=== PATIENT | female | born 1945 | race Two or more races ===

== ENCOUNTER 2019-01-14 11:52 | Inpatient (IN) | payer OTHER ==
[~2019-01-14] VITALS: Ht 160 cm; Wt 63.5 kg
[2019-01-26] MEDS ORDERED: COZAAR100 MG PO (09:46)
[2019-01-26] MEDS ORDERED: [UNRECOGNIZED DRUG - OTHER] PO (09:46)
[2019-01-26] MEDS ORDERED: EZETIMIBE10 MG PO (09:47)
[2019-01-26] MEDS ORDERED: CLONAZEPAM0.5 MG PO (09:47)
[2019-01-26] MEDS ORDERED: ASPIR 8181 MG PO (09:48)
[2019-01-26] MEDS ORDERED: PROTONIX40 M1 PO (09:48)
[2019-01-26] MEDS ORDERED: DICLOFENAC SODIU5 ML PO (09:48)
[2019-02-03] MEDS ORDERED: NORVASC5 MG PO (10:02)
[2019-02-05] MEDS ORDERED: LOSARTAN POTAS100 MG PO (13:37)
[2019-02-05] MEDS ORDERED: AMLODIPINE BESYL5 MG PO (13:37)
[2019-02-05] MEDS ORDERED: NEURONTIN300 MG PO (13:38)
[2019-02-05] MEDS ORDERED: CLONAZEPAM0.5 MG PO (13:38)
[2019-02-05] MEDS ORDERED: ULTRACET PO (13:39)
[2019-02-05] MEDS ORDERED: BONIVA150 MG PO (13:40)
== END 2019-02-05 14:45 | disposition home or self-care (01) | DRG 331 ==
LOC: ADM 01-25 14:45 → AMB-ENDOS 02-01 07:15 → EDSTATUS 02-01 07:15 → O/R 02-02 04:57 → SURH 02-02 04:57
PROVIDERS: ADMIT Surgery
PROC: 07TB4ZZ Resection of Mesenteric Lymphatic, Percutaneous Endoscopic Approach (ICD-10-PCS; 2019-02-02)
PROC: 0DJD8ZZ Inspection of Lower Intestinal Tract, Via Natural or Artificial Opening Endoscopic (ICD-10-PCS; 2019-02-02)
PROC: 0DTN4ZZ Resection of Sigmoid Colon, Percutaneous Endoscopic Approach (ICD-10-PCS; principal; 2019-02-02 20:15)
DX: C18.7 Malignant neoplasm of sigmoid colon (principal); N73.6 Female pelvic peritoneal adhesions (postinfective); R59.0 Localized enlarged lymph nodes; K63.5 Polyp of colon

== ENCOUNTER 2019-02-01 11:30 | Day surgery (SDC) | payer OTHER ==
[~2019-02-01 11:30] MED LIST: ASPIR 8181 MG PO; CLONAZEPAM0.5 MG PO; COZAAR100 MG PO; DICLOFENAC SODIU5 ML PO; EZETIMIBE10 MG PO; PROTONIX40 M1 PO; [UNRECOGNIZED DRUG - OTHER] PO
== END 2019-02-01 14:25 | disposition home or self-care (01) ==
LOC: AMB-ENDOS 11:30
DX: D12.5 Benign neoplasm of sigmoid colon (principal)

== ENCOUNTER 2020-08-02 06:06 | Day surgery (SDC) | payer OTHER ==
[~2020-08-02 06:06] MED LIST changes: +AMLODIPINE BESYL5 MG PO; +BONIVA150 MG PO; +LOSARTAN POTAS100 MG PO; +NEURONTIN300 MG PO; +NORVASC5 MG PO; +ULTRACET PO
== END 2020-08-02 09:40 | disposition home or self-care (01) ==
LOC: AMB-ENDOS 06:06
PROVIDERS: ATTEND Surgery
DX: D12.3 Benign neoplasm of transverse colon (principal); Z20.828 Contact with and (suspected) exposure to other viral communicable diseases; D17.5 Benign lipomatous neoplasm of intra-abdominal organs